=== PATIENT | female | born 1975 | race Caucasian/White ===

== ENCOUNTER 2022-10-15 10:18 | Outpatient (CLI) | payer MEDICAID, SELFPAY | END 2022-10-15 10:19 | disposition home or self-care (01) | PROVIDERS: PCP Family Medicine; Visit Provider Obstetrics & Gynecology | DX: N95.1 Menopausal and female climacteric states (principal) | CPT/HCPCS: 83001 ==

== ENCOUNTER 2022-12-16 12:08 | Emergency (ER) | payer MEDICAID, SELFPAY ==
[2022-12-16 12:21] VITALS: BP 108/74; PULSE 68; RESP 14; TEMP 36.4; O2SAT 98; BMI 35.2
--- NOTE | 2022-12-16 12:38 | ED_ITS ---
HPI - Female Genitourinary General Time Seen by Provider: 12:38 Date Seen: 12/16/22 Chief complaint: Urogenital Problems, Female Stated complaint: poss uti Time Seen by Provider: 12/16/22 12:28 Source: patient and RN notes reviewed Mode of arrival: ambulatory Limitations: no limitations History of Present Illness HPI Narrative: Patient is a 47-year-old female coming in with concern of urinary symptoms, wanting to rule out an underlying kidney stone. Patient's eye Rebecca Astorga yesterday in clinic at [facility], was diagnosed with UTI but was told that they could not rule out kidney stones. Jean Marie went in with urinary frequency incomplete emptying feeling terminal dysuria more in the pelvic area. No fevers chills. She baseline has underlying IBS and will vomit with that at times but has not noted any recently. There is no fever. She just feels a sense of fogginess, does not feel right. She was told she had a UTI yesterday but her kidney functions were normal. She was told by her boss at work, works at [employer], that she should be evaluated. She just not feeling well. She does have some low back pain with this. She was started on Levaquin. No recent intercourse. Patient states she was started on estradiol this past year by Dr. Castanon. She has never had a history of kidney stones herself, is not aware of family history of them. MD elicited complaint: dysuria and UTI Related Data Home Medications Medication Instructions Recorded Confirmed bupropion HCl 300 mg 24 hr tablet, mg PO 10/10/21 10/15/22 extended release lubiprostone 8 mcg capsule mcg PO 10/10/21 10/15/22 omeprazole 20 mg capsule,delayed mg 10/10/21 10/15/22 release ondansetron 4 mg disintegrating mg 10/10/21 10/15/22 tablet trazodone 50 mg tablet mg 10/10/21 10/15/22 Previous Rx's Medication Instructions Recorded estradiol 1 mg tablet 1 mg PO QDAY #90 tabs 10/15/22 Allergies Allergy/AdvReac Type Severity Reaction Status Date / Time penicillin V Allergy Severe Anaphylaxis Verified 12/16/22 12:32 Cephalosporins Allergy Mild Hives Verified 12/16/22 12:32 acetaminophen [From Vicodin] Allergy Vomiting Verified 12/16/22 12:32 amoxicillin [From Augmentin] Allergy Vomiting Verified 12/16/22 12:32 cefaclor [From Ceclor] Allergy hives Verified 12/16/22 12:32 clavulanic acid Allergy Vomiting Verified 12/16/22 12:32 [From Augmentin] hydrocodone [From Vicodin] Allergy Vomiting Verified 12/16/22 12:32 Penicillins Allergy Anaphylaxis Verified 12/16/22 12:32 Review of Systems Narrative: As per HPI. PFSH PFSH Medical History History of vaginal delivery History of blood transfusion ?Z92.89 - Personal history of other medical treatment (ICD-10) Adjustment disorder with depressed mood ?F43.21 - Adjustment disorder with depressed mood (ICD-10) Endometriosis ?N80.9 - Endometriosis, unspecified (ICD-10) History of cardiac murmur ?Z86.79 - Personal history of other diseases of the circulatory system (ICD- 10) Surgical History S/P thyroid biopsy (02/11/18) ?Z98.890 - Other specified postprocedural states (ICD-10) History of total hysterectomy (09/06/13) ?Z90.710 - Acquired absence of both cervix and uterus (ICD-10) History of ovarian cystectomy (05/13/10) ?Z98.890 - Other specified postprocedural states (ICD-10) ?Z87.42 - Personal history of other diseases of the female genital tract (ICD-10) History of endometrial ablation (07/17/06) ?Z98.890 - Other specified postprocedural states (ICD-10) History of laparoscopic cholecystectomy (2003) ?Z90.49 - Acquired absence of other specified parts of digestive tract (ICD- 10) History of appendectomy (1994) ?Z90.49 - Acquired absence of other specified parts of digestive tract (ICD- 10) Family History Mother Lung cancer Breast cancer, Onset Age: 55 Stroke Coronary artery disease High blood pressure Depression Sister Diabetes Father Coronary artery disease High cholesterol Myocardial infarction, Onset Age: 70 Peripheral vascular disease High blood pressure Maternal Grandmother Breast cancer, Onset Age: 74 Coronary artery disease Myocardial infarction, Onset Age: 83 Maternal Grandfather Coronary artery disease Myocardial infarction, Onset Age: 52 Uncle Coronary artery disease Myocardial infarction, Onset Age: 50 Brother Liver cirrhosis Social History What is your current living situation?: I presently have a place to live Problems where you live: no known problems In the past 12 months, utilities in danger of being shut off: no In the past 12 mos, have been you worried that your food would run out before you had money to buy more?: never true In the past 12 mos, the food you bought just didn't last and you didn't have money to buy more?: never true Smoking Status: Never smoker Do you use any of these nicotine containing products: None How often do you have a drink containing alcohol: monthly or less How many standard drinks containing alcohol do you have on a typical day: 1 or 2 How often do you have six or more drinks on one occasion: Less than monthly AUDIT-C Alcohol total score: 2 Non-prescribed substance use: denies use How often does anyone, including family, friends and others, physically hurt you : never How often does anyone, including family, friends and others, insult or talk down to you: rarely How often does anyone, including family, friends and others, threaten you with harm: never How often does anyone, including family, friends and others, scream or curse at you: rarely Exam Const: Vital Signs, click to edit/add: Vital Signs - 24 hr 12/16/22 12:21 12/16/22 14:57 Temperature 97.5 F L Pulse Rate [Right Pulse Oximeter] 68 70 Respiratory Rate 14 14 Blood Pressure [Ri ght Upper Arm] 108/74 121/78 Pulse Oximetry 98 98 Oxygen Delivery Me thod Room Air Room Air Jean Marie is a very pleasant 47-year-old female seen in exam room 4. She is alert, interactive, no apparent distress. Sclera clear come speech normal. Lungs are clear with good air entry, no wheezing crackles. No CVA tenderness. CV regular rate and rhythm no murmur. Abdomen is soft, no specific tenderness noted anywhere, certainly no rebound or guarding when I palpate. Documenting provider has reviewed patient's vital signs: yes Course Course ED Course: Jean Marie came to the ED anticipating CT imaging to rule out kidney stones. I am not is inclined to think that there is a kidney stone based on her symptoms but as she and I reviewed, it is imperative to make sure that there is no retained kidney stone if she indeed has a UTI. Thus, I have ordered a noncontrast CT, have asked her for repeat urinalysis here so that I may see it. Will also update her kidney function and make sure labs are looking reasonable. Reevaluation(s) Time of Reevaluation #1: 15:21 Reevaluation #1: Reviewed with patient her CT is not showing any evidence of urinary abnormality, no pyelonephritis, no kidney stones. It was done without contrast been on the LEs there is no urinary changes. There is some fluid around the small bowel that could be consistent with enteritis per the radiologist's report. Did review this with her. She does have a standing order of Zofran at home due to her irritable bowel syndrome. At this time would have her complete her Levaquin as prescribed yesterday. I am not finding anything new on urinalysis today. Labs are stable. We will discharge to home. Vital Signs Vital signs: Initial Vital Signs Temperature 97.5 F L 12/16/22 12:21 Temperature Source Temporal Artery Scan 12/16/22 12:21 Pulse Rate 68 12/16/22 12:21 Pulse Rhythm Regular 12/16/22 12:21 Respiratory Rate 14 12/16/22 12:21 Blood Pressure 108/74 12/16/22 12:21 Blood Pressure Mean 85 12/16/22 12:21 Blood Pressure Position Sitting 12/16/22 12:21 Pulse Oximetry 98 12/16/22 12:21 Oxygen Delivery Method Room Air 12/16/22 12:21 Vital Signs Temperature 97.5 F L 12/16/22 12:21 Pulse Rate 68 12/16/22 12:21 Respiratory Rate 14 12/16/22 12:21 Blood Pressure 108/74 12/16/22 12:21 Pulse Oximetry 98 12/16/22 12:21 Oxygen Delivery Method Room Air 12/16/22 12:21 Temperature 97.5 F L 12/16/22 12:21 Pulse Rate 70 12/16/22 14:57 Respiratory Rate 14 12/16/22 14:57 Blood Pressure 121/78 12/16/22 14:57 Pulse Oximetry 98 12/16/22 14:57 Oxygen Delivery Method Room Air 12/16/22 14:57 MDM - Female Genitourinary Lab Data Attestation: I reviewed the patient's lab results. Labs: Lab Results 12/16/22 12/16/22 Range/Units 12:38 13:07 WBC 8.48 (4.50-11.00) K/uL RBC 4.38 (4.00-5.20) m/uL Hgb 12.4 (12.0-16.0) gm/dL Hct 37.5 (33.0-51.0) % MCV 86 (80-100) fL MCH 28 (26-34) pg MCHC 33 (32-36) gm/dL RDW Coeff of Yariel 13.6 (11.5-15.5) % Plt Count 328 (140-440) K/uL Neut % (Auto) 70.9 (42.0-72.0) % Lymph % (Auto) 21.6 (20-44) % [place] % (Auto) 6.3 (0.0-11.0) % Eos % (Auto) 0.2 (0.0-7.0) % Baso % (Auto) 0.6 (0.0-3.0) % Neut # (Auto) 6.02 (1.7-7.0) K/uL Lymph # (Auto) 1.83 (0.90-2.90) K/uL [place] # (Auto) 0.50 (0.00-0.90) K/UL Eos # (Auto) 0.02 (0.00-0.50) K/uL Baso # (Auto) 0.05 (0.00-0.30) K/uL Abs Immat Gran (auto) 0.03 (0.00-0.30) K/uL Imm/Tot Granulo (auto) 0.4 % Sodium 136 (135-149) mmol/L Potassium 3.8 (3.6-5.1) mmol/L Chloride 103 (96-114) mmol/L Carbon Dioxide 25 (20-32) mmol/L Anion Gap 8 (7-15) mEq/L BUN 5 (5-24) mg/dL Creatinine 0.6 (0.5-1.5) mg/dL Estimated Creat Clear 111.51 Estimated GFR 111 ml/min Glucose 90 (60-115) mg/dL Lactate 0.6 (0.5-1.9) mmol/L Calcium 9.4 (8.4-10.6) mg/dL C-Reactive Protein 0.7 (0.5-1.0) mg/dL Urine Color Yellow (Yellow) Urine Appearance Clear (Clear) Urine pH 6.5 (5.0-8.5) Ur Specific [place] 1.015 (1.000-1.030) Urine Protein Negative (Negative) Urine Glucose (UA) Negative (Negative) Urine Ketones Negative (Negative) Urine Blood Negative (Negative) Urine Nitrite Negative (Negative) Urine Bilirubin Negative (Negative) Urine Urobilinogen 0.2 (0.2-1.0) Ur Leukocyte Esterase Trace A (Negative) Urine RBC 0-2 (0-2) Urine WBC 0-2 (0-5) Ur Squamous Epith Cells Few (None-Few) Urine Bacteria Few A (None) Imaging Data CT scan - abdomen: Attestation: I have reviewed the pertinent imaging results. Radiologist's impression: Patient: JEAN MARIE CLARK Facility:?[facility] Patient ID:?[id number] Site Patient ID:?[id number]. Site :?[id number] Study:?CT Abdomen/Pelvis W/O-12/16/2022 1:19:40 PM Ordering Physician:Rina Law Final Report: Indication: History of urinary symptoms, rule out kidney stone Technique: Volumetric multidetector CT images of the abdomen and pelvis were without the administration of intravenous contrast. Comparison: None available. Findings: The lung bases are clear. Ex fix The liver is normal in attenuation without intrahepatic biliary ductal dilatation. C there is prior cholecystectomy. There is no significant common biliary ductal dilatation or abrupt cut off. The spleen is normal in attenuation and size. The stomach and duodenum are grossly unremarkable. The pancreas is normal in attenuation without significant atrophy. The adrenal glands are unremarkable. There is no evidence of radiopaque calculus or hydronephrosis. There is moderate stool seen throughout the colon with fluid-filled central small-bowel which may represent mild enteritis change. The appendix is unremarkable. There is no significant mesenteric, retroperitoneal, or pelvic sidewall lymph nodes. The aorta is nonaneurysmal. There is no significant atherosclerotic disease appreciated. There is prior hysterectomy. There is no intra-abdominal free air or free fluid. Otherwise, the pelvic viscera are grossly within normal limits. The anterior abdominal wall is grossly intact. The lumbar vertebral body heights are maintained with mild multi-level degenerative disc disease. Impression: No evidence of hydronephrosis or obstructive radiopaque calculus. Minimal fluid is seen within the central small bowel consistent with mild enteritis change. Otherwise, no definite acute intra-abdominal abnormality is identified. Please note that all CT scans at this facility use dose modulation, iterative reconstruction, and/or weight-based dosing when appropriate to reduce radiation dose to as low as reasonably achievable. Dictated by Randy Pepper MD @ 12/16/2022 2:03:15 PM (Electronic Signature) Critical Care Time Critical Care Time Critical Care Time: No Discharge Plan Discharge Clinical Impression: Urinary tract infection, Enteritis Patient Disposition: Home, Self-Care Condition: Stable Instructions: Urinary Tract Infection in Women (ED), Enteritis (ED) Additional Instructions: Complete the antibiotics for the diagnosis of the urinary tract infection from your clinic visit yesterday. With enteritis, this is typically viral and require supportive care. Recommend small frequent sips of fluids to stay hydrated. May need to use Zofran for nausea vomiting. It is possible that you may develop diarrhea with this as well. Seek re-evaluation if you are unable to keep orals in, have worsening symptoms or further concerns. Otherwise, may try diet as tolerated. Activity Level: Activity as Tolerated Prescriptions: No Action estradiol 1 mg tablet 1 mg PO QDAY Qty: 90 0RF trazodone 50 mg tablet Patient Comments: TAKE TWO TABLETS BY MOUTH DAILY AT BEDTIME omeprazole 20 mg capsule,delayed release(DR/EC) Patient Comments: TAKE ONE CAPSULE BY MOUTH ONE TIME DAILY before a meal ondansetron 4 mg tablet,disintegrating Patient Comments: DISSOLVE ONE TABLET IN MOUTH EVERY EIGHT HOURS NEEDED FOR NAUSEA AND VOMITING bupropion HCl 300 mg tablet extended release 24 hr PO Patient Comments: TAKE ONE TABLET BY MOUTH ONE TIME DAILY lubiprostone 8 mcg capsule PO Hold Instructions: PRN Patient Comments: take 1 capsule by mouth 2 times daily for 2 weeks. if constipation not well managed, increase to 2 capsules 2 times daily. Follow Up/Referrals: Lion Anderson MD [Primary Care Provider] - Stand Alone Forms: [employer] Info Instructions
--- NOTE | 2022-12-16 12:44 | CRLHL7_ITS ---
For Patients: As a result of the Century Cures Act, medical imaging exams and procedure reports are released immediately into your electronic medical record. You may view this report before your referring provider. If you have questions, please contact your health care provider. Indication: History of urinary symptoms, rule out kidney stone Technique: Volumetric multidetector CT images of the abdomen and pelvis were without the administration of intravenous contrast. Comparison: None available. Findings: The lung bases are clear. Ex fix The liver is normal in attenuation without intrahepatic biliary ductal dilatation. C there is prior cholecystectomy. There is no significant common biliary ductal dilatation or abrupt cut off. The spleen is normal in attenuation and size. The stomach and duodenum are grossly unremarkable. The pancreas is normal in attenuation without significant atrophy. The adrenal glands are unremarkable. There is no evidence of radiopaque calculus or hydronephrosis. There is moderate stool seen throughout the colon with fluid-filled central small-bowel which may represent mild enteritis change. The appendix is unremarkable. There is no significant mesenteric, retroperitoneal, or pelvic sidewall lymph nodes. The aorta is nonaneurysmal. There is no significant atherosclerotic disease appreciated. There is prior hysterectomy. There is no intra-abdominal free air or free fluid. Otherwise, the pelvic viscera are grossly within normal limits. The anterior abdominal wall is grossly intact. The lumbar vertebral body heights are maintained with mild multi-level degenerative disc disease. Impression: No evidence of hydronephrosis or obstructive radiopaque calculus. Minimal fluid is seen within the central small bowel consistent with mild enteritis change. Otherwise, no definite acute intra-abdominal abnormality is identified. Please note that all CT scans at this facility use dose modulation, iterative reconstruction, and/or weight-based dosing when appropriate to reduce radiation dose to as low as reasonably achievable. Dictated by Randy Pepper MD @ 12/16/2022 2:03:15 PM (Electronically Signed)
[2022-12-16 12:55] LABS: Appearance Urine Clear (Clear); Bilirubin Urine Negative (Negative); Blood Urine Negative (Negative); Color Urine Yellow (Yellow); Glucose Urine Negative (Negative); Ketones Urine Negative (Negative); Leukocyte Esterase Urine Trace (Negative); Nitrite Urine Negative (Negative); Protein Urine Negative (Negative); Specific Gravity Urine 1.015 (1.000-1.030); Urobilinogen Urine 0.2 (0.2-1.0); pH Urine 6.5 (5.0-8.5)
[2022-12-16 13:11] LABS: Bacteria Urine Few; RBC Urine 0-2 (0-2); Squamous Epithelial Cell Urine Few (None-Few); WBC Urine 0-2 (0-5)
[2022-12-16 13:12] LABS: Lactate* 0.6 mmol/L (0.5-1.9)
[2022-12-16 13:20] LABS: Basophils Absolute Auto 0.05 K/uL (0.00-0.30); Basophils Percent Auto 0.6 % (0.0-3.0); Eosinophils Absolute Auto 0.02 K/uL (0.00-0.50); Eosinophils Percent Auto 0.2 % (0.0-7.0); Hematocrit 37.5 % (33.0-51.0); Hemoglobin* 12.4 gm/dL (12.0-16.0); Immature Granulocytes Abs Auto 0.03 K/uL (0.00-0.30); Immature Granulocytes Pct Auto 0.4 %; Lymphocytes Absolute Auto 1.83 K/uL (0.90-2.90); Lymphocytes Percent Auto 21.6 % (20-44); Mean Corpuscular HGB Conc 33 gm/dL (32-36); Mean Corpuscular Hemoglobin 28 pg (26-34); Mean Corpuscular Volume 86 fL (80-100); Monocytes Percent Auto 6.3 % (0.0-11.0); Neutrophils Absolute Auto 6.02 K/uL (1.7-7.0); Neutrophils Percent Auto 70.9 % (42.0-72.0); Platelet Count* 328 K/uL (140-440); RDW Coefficient of Variation % 13.6 % (11.5-15.5); Red Blood Count 4.38 m/uL (4.00-5.20); White Blood Count* 8.48 K/uL (4.50-11.00)
[2022-12-16 13:25] LABS: Slide Review Reflex No
[2022-12-16 13:36] LABS: Chloride* 103 mmol/L (96-114); Potassium* 3.8 mmol/L (3.6-5.1); Sodium* 136 mmol/L (135-149)
[2022-12-16 13:39] LABS: Anion Gap 8 mEq/L (7-15); Carbon Dioxide* 25 mmol/L (20-32); Creatinine* 0.6 mg/dL (0.5-1.5); Est. Creatinine Clearance* 111.51; Estimated Glomerular Filt Rate 111 ml/min
[2022-12-16 13:40] LABS: Blood Urea Nitrogen* 5 mg/dL (5-24); Calcium* 9.4 mg/dL (8.4-10.6); Glucose* 90 mg/dL (60-115)
[2022-12-16 13:42] LABS: C Reactive Protein* 0.7 mg/dL (0.5-1.0)
[2022-12-16 14:57] VITALS: BP 121/78; PULSE 70; RESP 14; O2SAT 98
== END 2022-12-16 15:32 | disposition home or self-care (01) ==
PROVIDERS: Emergency Provider Family Medicine; PCP Family Medicine
DX: N39.0 Urinary tract infection, site not specified (principal); K52.9 Noninfective gastroenteritis and colitis, unspecified
CPT/HCPCS: 36415; 74176; 80048; 81001; 83605; 85025; 86140; 87086; 99284

== ENCOUNTER 2023-12-15 16:36 | Outpatient (CLI) | payer OTHER, SELFPAY ==
--- NOTE | 2023-12-15 19:20 | CRLHL7_ITS ---
For Patients: As a result of the Century Cures Act, medical imaging exams and procedure reports are released immediately into your electronic medical record. You may view this report before your referring provider. If you have questions, please contact your health care provider. BILATERAL SCREENING MAMMOGRAM WITH COMPUTER-AIDED DETECTION AND TOMOSYNTHESIS TECHNIQUE: CC and MLO views were obtained. These mammographic images have been obtained using full-field digital technique. These mammographic images were interpreted with the benefit of computer-aided detection. Breast Tomosynthesis was used in this interpretation. COMPARISON FILM: 06/10/21, 06/14/20. FINDINGS: The breasts are heterogeneously dense, which may obscure small masses. IMPRESSION: There is no radiographic evidence for malignancy. ASSESSMENT: BI-RADS Category 1: Negative RECOMMENDATION: Routine screening mammogram in 1 year. A lay language report of this examination will be provided to the patient. Adan King M.D. Diagnostic Radiologist [email or web address] SP/Dictated by: Adan King MD @ 12/17/2023 12:56:00 PM (Electronically Signed)
== END 2023-12-15 16:37 | disposition home or self-care (01) ==
LOC: MAMMO 16:36
PROVIDERS: PCP Family Medicine; Visit Provider Family Medicine
DX: Z12.31 Encounter for screening mammogram for malignant neoplasm of breast (principal); R92.2 Inconclusive mammogram
CPT/HCPCS: 77063; 77067

== ENCOUNTER 2024-04-01 05:23 | Emergency (ER) | payer OTHER, SELFPAY ==
[2024-04-01 05:27] VITALS: BP 166/80; PULSE 100; RESP 16; TEMP 36.9; O2SAT 100; BMI 28.2
--- NOTE | 2024-04-01 06:11 | ED.GENADULT ---
HPI - General Adult General Date Seen: 04/01/24 Chief complaint: Nausea/Vomiting Stated complaint: facial swelling/vomiting Time Seen by Provider: 04/01/24 05:26 Source: patient Mode of arrival: ambulatory Limitations: no limitations History of Present Illness HPI narrative: Patient is a 48-year-old female who was seen two days ago for acute maxillary sinusitis and started on sulfa. She lists allergic reactions to penicillins, cephalosporins. Her sinus pain has gotten worse and Tylenol and ibuprofen are not helping. This morning she noticed increased swelling to the right side of her face. No lip or tongue swelling. No wheezing or shortness of breath. No fevers or chills. Related Data Home Medications ?Medication ?Instructions ?Recorded ?Confirmed bupropion HCl 300 mg 24 hr tablet, mg PO 10/10/21 11/23/23 extended release lubiprostone 8 mcg capsule mcg PO 10/10/21 11/23/23 omeprazole 20 mg capsule,delayed mg 10/10/21 11/23/23 release ondansetron 4 mg disintegrating mg 10/10/21 11/23/23 tablet trazodone 50 mg tablet mg 10/10/21 11/23/23 Previous Rx's ?Medication ?Instructions ?Recorded estradiol 1 mg tablet 1 mg PO QDAY #90 tabs 11/23/23 azithromycin 250 mg tablet See Rx Instructions PO .COMPLEX #6 04/01/24 (Zithromax Z-Troy) tabs prednisone 50 mg tablet 50 mg PO DAILY #5 tabs 04/01/24 tramadol 50 mg tablet 50 mg PO TID PRN pain #15 tabs 04/01/24 Allergies Allergy/AdvReac Type Severity Reaction Status Date / Time penicillin V Allergy Severe Anaphylaxis Verified 04/01/24 05:32 Cephalosporins Allergy Mild Hives Verified 04/01/24 05:32 acetaminophen (From Vicodin) Allergy Vomiting Verified 04/01/24 05:32 amoxicillin (From Augmentin) Allergy Vomiting Verified 04/01/24 05:32 cefaclor (From Ceclor) Allergy hives Verified 04/01/24 05:32 clavulanic acid (From Allergy Vomiting Verified 04/01/24 05:32 Augmentin) hydrocodone (From Vicodin) Allergy Vomiting Verified 04/01/24 05:32 Penicillins Allergy Anaphylaxis Verified 04/01/24 05:32 Review of Systems Narrative: Review of systems is outlined above otherwise noted to be negative. [facility] Medical History History of vaginal delivery History of blood transfusion ?Z92.89 - Personal history of other medical treatment (ICD-10) Adjustment disorder with depressed mood ?F43.21 - Adjustment disorder with depressed mood (ICD-10) Endometriosis ?N80.9 - Endometriosis, unspecified (ICD-10) History of cardiac murmur ?Z86.79 - Personal history of other diseases of the circulatory system (ICD-10) Surgical History S/P thyroid biopsy (02/11/18) ?Z98.890 - Other specified postprocedural states (ICD-10) History of total hysterectomy (09/06/13) ?Z90.710 - Acquired absence of both cervix and uterus (ICD-10) History of ovarian cystectomy (05/13/10) ?Z98.890 - Other specified postprocedural states (ICD-10) ?Z87.42 - Personal history of other diseases of the female genital tract (ICD-10) History of endometrial ablation (07/17/06) ?Z98.890 - Other specified postprocedural states (ICD-10) History of laparoscopic cholecystectomy (2003) ?Z90.49 - Acquired absence of other specified parts of digestive tract (ICD-10) History of appendectomy (1994) ?Z90.49 - Acquired absence of other specified parts of digestive tract (ICD-10) Family History Mother Lung cancer Breast cancer, Onset Age: 55 Stroke Coronary artery disease High blood pressure Depression Sister Diabetes Father Coronary artery disease High cholesterol Myocardial infarction, Onset Age: 70 Peripheral vascular disease High blood pressure Maternal Grandmother Breast cancer, Onset Age: 74 Coronary artery disease Myocardial infarction, Onset Age: 83 Maternal Grandfather Coronary artery disease Myocardial infarction, Onset Age: 52 Uncle Coronary artery disease Myocardial infarction, Onset Age: 50 Brother Liver cirrhosis Social History What is your current living situation?: I presently have a place to live Problems where you live: no known problems In the past 12 months, utilities in danger of being shut off: no In past 12 months, lack of transportation kept you from medical appts, meetings, work, or getting things needed for daily living: no In the past 12 mos, have been you worried that your food would run out before you had money to buy more?: never true In the past 12 mos, the food you bought just didn't last and you didn't have money to buy more?: never true Smoking Status: Never smoker Do you use any of these nicotine containing products: None How often do you have a drink containing alcohol: monthly or less How many standard drinks containing alcohol do you have on a typical day: 1 or 2 How often do you have six or more drinks on one occasion: Less than monthly AUDIT-C Alcohol total score: 2 Non-prescribed substance use: denies use How often does anyone, including family, friends and others, physically hurt you: never How often does anyone, including family, friends and others, insult or talk down to you: rarely How often does anyone, including family, friends and others, threaten you with harm: never How often does anyone, including family, friends and others, scream or curse at you: rarely Health Related Social Needs: Other personal risk factors, not elsewhere classified (Z91.89) Exam Narrative: Exam Narrative: Vitals noted. HEENT: Conjunctiva clear. Tympanic membranes are pearly white bilaterally. Posterior pharynx is clear without erythema or exudate. Neck is supple without adenopathy. Lungs: Clear to auscultation in all ramírez. No wheezes, rales, rhonchi. Heart: Regular rate and rhythm without murmur. Extremities: No cyanosis or edema. Good distal pulses. Skin: She has soft tissue swelling of her right cheek and chin. No lip or tongue swelling. Neurologic: Awake, alert, fully oriented. Neurologic exam is nonfocal. Const: Vital Signs, click to edit/add: Vital Signs - 24 hr 04/01/ 05:27 Temperature 98.5 F Pulse Rate [Right Pulse Oximeter] 100 Respiratory Rate 16 Blood Pressure [Ri ght Upper Arm] 166/80 H Pulse Oximetry 100 Oxygen Delivery Me thod Room Air Course Course ED Course: Patient seen and examined. It appears that she is having allergic reaction to the sulfa antibiotic. She has some nausea but no vomiting. She is requesting something stronger than ibuprofen for pain. Vital Signs Vital signs: Initial Vital Signs Temperature 98.5 F 04/01/24 05:27 Temperature Source Temporal Artery Scan 04/01/24 05:27 Pulse Rate 100 04/01/24 05:27 Pulse Rhythm Regular 04/01/24 05:27 Pulse Strength 3+ Normal 04/01/24 05:27 Respiratory Rate 16 04/01/24 05:27 Blood Pressure 166/80 H 04/01/24 05:27 Blood Pressure Mean 108 H 04/01/24 05:27 Blood Pressure Position Supine 04/01/24 05:27 Pulse Oximetry 100 04/01/24 05:27 Oxygen Delivery Method Room Air 04/01/24 05:27 Vital Signs Temperature 98.5 F 04/01/24 05:27 Pulse Rate 100 04/01/24 05:27 Respiratory Rate 16 04/01/24 05:27 Blood Pressure 166/80 H 04/01/24 05:27 Pulse Oximetry 100 04/01/24 05:27 Oxygen Delivery Method Room Air 04/01/24 05:27 Temperature 98.5 F 04/01/24 05:27 Pulse Rate 100 04/01/24 05:27 Respiratory Rate 16 04/01/24 05:27 Blood Pressure 166/80 H 04/01/24 05:27 Pulse Oximetry 100 04/01/24 05:27 Oxygen Delivery Method Room Air 04/01/24 05:27 Discharge Plan Discharge Clinical Impression: Acute sinusitis, Allergic reaction due to antibacterial drug Patient Disposition: Home, Self-Care Condition: Stable Additional Instructions: Stop Sulfa. Start a Z-Troy. Prednisone 50 mg daily for five days. Benadryl 25 mg every 6 hours as needed. Tylenol and ibuprofen for pain. Tramadol for refractory pain. Follow-up with Dr. Anderson. Prescriptions: New azithromycin [Zithromax Z-Troy] 250 mg tablet See Rx Instructions .ROUTE .COMPLEX Qty: 6 0RF Rx Instructions: For 250 mg dose pack: take 500 mg today (day 1), then 250 mg for 4 days (days 2-5) prednisone 50 mg tablet 50 mg PO DAILY Qty: 5 0RF tramadol 50 mg tablet 50 mg PO TID PRN (Reason: pain) Qty: 15 0RF No Action estradiol 1 mg tablet 1 mg PO QDAY Qty: 90 3RF trazodone 50 mg tablet Patient Comments: TAKE TWO TABLETS BY MOUTH DAILY AT BEDTIME omeprazole 20 mg capsule,delayed release(DR/EC) Patient Comments: TAKE ONE CAPSULE BY MOUTH ONE TIME DAILY before a meal ondansetron 4 mg tablet,disintegrating Patient Comments: DISSOLVE ONE TABLET IN MOUTH EVERY EIGHT HOURS NEEDED FOR NAUSEA AND VOMITING bupropion HCl 300 mg tablet extended release 24 hr PO Patient Comments: TAKE ONE TABLET BY MOUTH ONE TIME DAILY lubiprostone 8 mcg capsule PO Patient Comments: take 1 capsule by mouth 2 times daily for 2 weeks. if constipation not well managed, increase to 2 capsules 2 times daily. Follow Up/Referrals: Lion Anderson MD [Primary Care Provider] - Stand Alone Forms: Producteev Info Instructions
== END 2024-04-01 06:23 | disposition home or self-care (01) ==
LOC: ED 06:20
PROVIDERS: Emergency Provider Family Medicine; PCP Family Medicine
DX: J01.90 Acute sinusitis, unspecified (principal); T36.95XA Adverse effect of unspecified systemic antibiotic, initial encounter
CPT/HCPCS: 99281; 99283

== ENCOUNTER 2024-11-02 14:11 | Outpatient (CLI) | payer OTHER, SELFPAY | END 2024-11-02 14:12 | disposition home or self-care (01) | PROVIDERS: PCP Family Medicine; Visit Provider Obstetrics & Gynecology | DX: R30.0 Dysuria (principal) | CPT/HCPCS: 87086 ==

== ENCOUNTER 2025-02-19 06:56 | Emergency (ER) | payer OTHER, SELFPAY ==
--- OUTSIDE RECORDS SUMMARY | 2025-02-19 06:58 | XMS_ITS | Clinical Summary ---
Author Organization [facility] Address [address] [place] [id number] Care Team Providers Care Patient Care Technician Name Role Phone Lion Anderson MD Primary Care Provider [phone] Saad Ruffin MD Unavailable [phone] Allergies Active Allergy Reactions Criticality Noted Date Comments Amoxicillin-Pot Clavulanate Intolerance-Can't Take Cefaclor Rash Penicillins Anaphylaxis High Sulfamethoxazole-Trimethoprim Edema,Vomiting High Hydrocodone-Acetaminophen Nausea And Vomiting 1 05/11/2006 Medications multivitamin (MVI) tablet Take 1 Tablet by mouth once daily. 0 3 Active glucosam/chond-msm1 /C/fausto/bor (GLUCOSAMINE-CHOND- MSM COMPLEX ORAL) Take by mouth. Active estradioL (ESTRACE) 1 mg tablet Take 1 mg by mouth once daily. 3 Active cholecalciferol (VITAMIN D3) 2,000 unit capsule Take 2,000 units by mouth once daily. Active ondansetron (Zofran ODT) 4 mg disintegrating tabletIndications:N ausea Place 1 Tablet (4 mg) on the tongue every 8 hours if needed for Nausea/Vomit ing. 25 Tablet 3 5 Active omeprazole (PRILOSEC) 20 mg Delayed-Release capsuleIndications: Gastroesophageal reflux disease, unspecified whether esophagitis present Take 1 Capsule (20 mg) by mouth once daily before a meal. 90 Capsule 3 5 Active hyoscyamine sublingual (LEVSIN SL) 0.125 mg sublIndications:Irr itable bowel syndrome without diarrhea DISSOLVE ONE TABLET UNDER TONGUE EVERY FOUR HOURS NEEDED FOR PAIN 50 Tablet 3 5 Active buPROPion (WELLBUTRIN XL) 300 mg Extended-Release tabletIndications:A nxiety state Take 1 Tablet (300 mg) by mouth once daily. 90 Tablet 3 5 Active propranoloL (INDERAL) 10 mg tabletIndications:S ituational anxiety 10-20 mg twice daily as needed for Anxiety. 30 Tablet 2 5 Active hydrOXYzine HCL (ATARAX) 25 mg tabletIndications:S ituational anxiety Take 1-2 Tablets (25-50 mg) by mouth every 8 hours if needed for Anxiety. Don't drive for 8 hours after taking this. 30 Tablet 2 5 Active lubiprostone (AMITIZA) 24 mcg capsuleIndications: Other irritable bowel syndrome Take 1 Capsule (24 mcg) by mouth two times daily. 180 Capsule 3 5 Active Active Problems Problem Noted Date Diagnosed Date Prediabetes 08/22/2022 Overview (08/22/2022): Diagnosed based on a fasting glucose of 102 on 07/01/2022 COVID-19 virus infection 08/06/2022 Morbid obesity with BMI of 40.0-44.9, adult 09/2021 Anxiety 09/27/2018 S/P hysterectomy 07/11/2016 Vitamin B12 deficiency anemia 07/11/2016 Iron deficiency anemia secon gideon to inadequate dietary iron intake 07/11/2016 Family history of diabetes mellitus type II 10/2016 Irritable bowel syndrome 08/14/2014 Overview (07/02/2015): EGD 04/2015 normal biopsy on a regular diet. Patient does not have celiac disease per biopsy. Colonoscopy 06/2015 normal repeat in 10 years GERD (gastroesophageal reflux disease) 3 Nausea alone 07/27/2012 Overview (07/27/2012): EGD 07/2012 possible celiac disease, antibodies ordered Adjustment disorder with depressed mood 01/14/20 11 Ovarian cyst 08/09/2008 Overview (09/27/2018): Ovarian cyst not present on [address] scan. Resolved Problems Problem Noted Date Diagnosed Date Resolved Date Celiac disease 08/27/2012 04/17/2015 Overview (04/17/2015): Her biopsy suggested this. Her blood work when she went off gluten was negative. (this is often the case). We decided not to retest her because she felt so much better off wheat. EGD 04/2015 normal biopsy on a regular diet. Patient does not have celiac disease per biopsy. Encounters Date Type Department Care Team Description 11/24/2024 Telephone [facility] [address] [place], [place] [id number] Lion Anderson MD Form from Last 3 Months Immunizations Immunization Administration Dates Next Due COVID-19 VACCINE (PFIZER-BIO NTECH 3MCG/0.3ML) 6MO-4YO PF, MDV 12/30/2022 COVID-19 VACCINE COMIRNATY (PFIZER-BIONTECH 30MCG/0.3ML) 12YO+ PFS 01/07/2024,12/29/2022 COVID-19 vaccine (Pfizer-Bio NTech 30mcg/0.3mL) PF, MDV 04/17/2021,06/09/2020,05/19/2020 Hep B (Hepatitis B (Adult) Recombinant Adjuvanted) 06/13/2021 Influenza, IIV3 (Age 6-35 mos) 01/13/2011 Influenza, IIV3 (Age >=3 years) 01/07/20 24,02/20/2012,01/13/2011,2009,02/23/2004 Influenza, IIV4 12/30/2022,01/08/2018 Td (Age >=7 Years) 02/12/1995 Tdap 02/19/2021,01/07/2010 Family History Medical History Relation Name Comments Heart Disease Father MD @ 70 Hyperlipidemia Father Other Father peripheral vasc ular disease Cancer-breast Maternal Aunt Heart Disease Maternal Grandfather o f Heart attack @ Cancer-breast Maternal Grandmother 74 Heart Disease Maternal Grandmother 3 hear t attacks @ 83 Other Maternal Grandmother unusual anemia and diabetes Cancer Mother lung Cancer-breast Mother age 55 Cancer-breast Other Maternal Great Grandmother Diabetes Sister Cancer-ovarian No Family History Relation Name Status Comments Father Maternal Aunt Maternal Grandfather Maternal Grandmother Mother (Age 60) Other Sister Social History Tobacco Use Types Packs/Day Years Used Date Smoking Tobacco: Former Cigarettes Q uit: 04/06/2004 Passive Smoke Exposure: Never Smokeless Tobacco: Never Tobacco Cessation:Counseling Given: Not Answered Alcohol Use Standard Drinks/Week Comments Not Currently 0 (1 standard drink = 0.6 oz pur e alcohol) rarely PHQ-2 Answer Date Recorded PHQ-2 TOTAL SCORE 0 02/10/2024 Social Connections Answer Date Recorded Do you often feel lonely or isolated from those around you? 0 07/16/2023 Alcohol Use Answer Date Recorded How often do you have a drink containing alcohol ? 1 08/22/2022 How many drinks containing a lcohol do you have on a typical day when you are drinking? 0 08/22/2022 How often do you have five or more drinks on one occasion? 0 08/22/2022 Financial Resource Strain Answer Date R ecorded Difficulty of Paying Living Expenses 3 07/16/2023 Difficulty of Paying Living Expenses Not on file 07/16/2023 Food Insecurity Answer Date Recorded Do you worry your food will run out before you are able to buy more? 1 07/16/2023 Transportation Needs Answer Date Record ed Does lack of transportation keep you from medica l appointments? 1 07/16/2023 Does lack of transportation keep you from work, meetings or getting things that you need? 1 07/16/2023 Housing Stability Answer Date Recorded What is your housing situation today? 1 07/16/2023 Utilities Answer Date Recorded Do you have trouble paying f or utilities (for example, heat, electricity, water, phone)? 1 07/16/2023 Comments No Sex and Gender Information Value Date Recorded Sex Assigned at Not on file Legal Sex Female 6:47 AM [employer] Gender Identity Not on file Sexual Orientation Not on file Occupation Industry Job Start Date Job End Date [employer] Not on file Not on file Not on f ile Obstetrics History Last Filed Vital Signs Vital Sign Reading Time Taken Comments Blood Pressure 123/81 06/01/2024 10:30 AM [employer] Pulse 74 06/01/2024 10:30 AM [employer] Temperature 36.3 C (97.4 F) 06/01/2024 10:30 AM [employer] Respiratory Rate 18 10/08/2021 1:26 PM CDT Oxygen Saturation 96% 06/01/2024 10:30 AM [employer] Inhaled Oxygen Concentration - - Weight 97.2 kg (214 lb 4.8 oz) 06/01/2024 10:30 AM [employer] Height 167 cm (5' 5.75) 06/01/2024 10:30 AM [employer] Body Mass Index 34.85 06/01/2024 10:30 AM [employer]AD [employer]EL[employer] Plan of Treatment Health Maintenance Due Date Last Done Comments Hepatitis B series for 19+ ( 2 of 2 - CpG 2-dose series) 07/11/2021 06/13/2021 Pneumococcal series for age 50+ (1 of 1 - PCV) 2024 Zoster (shingles) series for age 50+ (1 of 2) 2024 Influenza Vaccine (#1) 2024 , 12/30/2022, 01/08/2018, Additional history exists Mammogram for age 45-75 12/14/2024 12/15/19, 06/25/2022, 06/10/2021, Additional history exists Depression screening for age 12+ 02/10/2025 02/11/2024, 02/10/2024, 12/24/2022, Additional history exists BMI (ht and wt on same day) for age 18+ 06/01/2025 06/01/2024, 03/31/2024, 10/16/2023, Additional history exists Colonoscopy through age 75 06/27/2025 06/28/2015 Lipids for age 45-75 07/02/2027 07/01/2022, 06/20/2020, 07/11/2016, Additional history exists Tetanus booster 02/19/2031 02/19/2021, 07/2009, 02/12/1995 RSV vaccine for adults or (1 - 1-dose 75+ series) 2049 Pap test for age 21-65 Discontinued 1, 01/07/2010, 06/08/2006, Additional history exists Hepatitis C screening for ag e 18-79 Completed 07/21/2012 HIV for age 15-65 Completed 10/14/2023 Procedures Procedure Name Priority Date/Time Associated Diagnosis Comments XR MAMMO SHERRY BILAT SCREEN Routine 12/15/2023 12:00 AM CDT Breast cancer screening by mammogram ANTI HIV 1/2 Add On 10/14/2023 7:35 AM CDT Screening for HIV (human immunodeficiency virus) LC LIPID PANEL AND CHOL/HDL RATIO Routine 07/01/2022 7:26 AM CDT Lipid screening ANTI HCV Routine 07/21/2012 3:30 PM CDT Abdominal pain, epigastric COB SAWYER THIN PREP PAP SCREEN IMAGED Routine 01/13/2011 2:06 PM CDT Screening for malignant neoplasm of the cervix from Last 3 Months or Most Recently Relevant to Health Maintenance Results * XR MAMMO SHERRY BILAT SCREEN [[id number]] (12/15/2023 12:00 AM CDT) Anatomical Region Laterality Modality BREASTS, Breast Left, Breast Right Bilateral Mammography Lion Anderson MD MAMMO Final Resu lt * ANTI HIV 1/2 [[id number]] (10/14/2023 7:35 AM CDT) Pathologist [facility] HIV-1/HIV-2 SCREEN Non-Reacti ve Non-Reacti ve 10/16/2023 3:52 PM [address] [facility] Comment:HIV-1 p24 and HIV-1/ HIV-2 Ab Not Detected. Blood BLOOD SPECIMEN / Unknown Venipuncture / Unknown 10/14/2023 7:35 AM CDT 10/14/2023 7:36 AM CDT Lion Anderson MD SEND OUTS Final Resu lt [facility] [address] [place] [address], [place] * (ABNORMAL) LC LIPID PANEL AND CHOL/HDL RATIO (07/01/2022 7:26 AM CDT) [facility] Cholesterol, Total 190 100 - 199 mg/dL 07/03/2022 9:[address] [facility] Triglycerides 84 0 - 149 mg/dL 07/03/2022 9:[address] [facility] HDL Cholesterol 58 >39 mg/dL 9:10 AM T [facility] ([facility] VLDL Cholesterol Fidel 15 5 - 40 mg/dL 07/03/2022 9:10 AM T [facility] LDL Chol Calc ([facility]) 117(H) 0 - 99 mg/dL 07/03/2022 9:[address] [facility] T. Chol/HDL Ratio 3.3 0.0 - 4.4 ratio 07/03/2022 9:10 AM T [facility] Comment: T. Chol/HDL Ratio Men Women 1/2 Avg.Risk 3.4 3.3 Avg.Risk 5.0 4.4 2X Avg.Risk 9.6 7.1 3X Avg.Risk 23.4 11.0 Blood BLOOD SPECIMEN / Unknown Venipuncture / Unknown 07/01/2022 7:26 AM CDT 07/01/2022 7:26 AM CDT Narrative [facility] - 07/03/2022 9:10 AM CDT Performed at: [address] [place] [id number] Manufacturing Area Manager: Shad Mcclure MD, Phone: [phone] us Lion Anderson MD SEND OUTS Final Resu lt [facility] ([facility]) [address] [place] [id number], * ANTI HCV (07/21/2012 3:30 PM CDT) [facility] ANTI HCV Non-reacti ve [facility] Blood specimen (specimen) BLOOD SPECIMEN / Unknown 07/21/2012 3:30 PM CDT 07/21/2012 3:22 PM CDT us Lion Anderson MD SEND OUTS Final Resu lt [facility] INTERNAL ZIP [id number] [address] [place] [address] * COB SAWYER THIN PREP PAP SCREEN IMAGED (01/13/2011 2:06 PM CDT) CYTOLOGY CYTOPATHOLOGY REPORT [facility] Status: Final Status [id number] CLINICAL INFORMATION Last Date of LMP :12/24/2010 Last Pap Date :01/07/2010 Last Pap Result :NIL ABN [place]/Bx Past 5 YRS :None Hormone Usage :None Menstrual Status :Regular Periods [place]/Bx done today :No Additional Information :None given HPV Request :HPV if ASCUS SPECIMEN SOURCE :Cervical/vaginal ThinPrep Vial, screening SPECIMEN ADEQUACY :Satisfactory for evaluation Endocervical component present. INTERPRETATION/RES ULT Negative for intraepithelial lesion or malignancy (NIL) Cytology 1st Screener :tami Signed by :tami This specimen was screened by the FDA approved ThinPrep Imaging System and manually reviewed. NOTE: The Pap test is a screening technique, not a diagnostic procedure. It is used primarily to screen for squamous cancers and precursor lesions. Published studies have shown that it is subject to both false negative and false positive results. The pap test should not be used as the sole means to diagnose or exclude pre-malignant and malignant lesions. COLLECTED:01/13/11 ACCESSIONED: 01/14/11 SIGNED: 01/20/11 [facility] PAP [place] CODE NIL [facility] Cervical/Vaginal (Cervical/Vagina l) 01/13/2011 2:06 PM CDT 01/13/2011 2:05 PM CDT us Lion Anderson MD PATHOLOGY/CYTOLOGY Final R esult [facility] INTERNAL ZIP [id number] [address] from Last 3 Months or Most Recently Relevant to Health Maintenance Insurance [facility] Care Teams Patient Care Technician Relationship Specialty Start Date End Date Lion Anderson MD [address] [place] [address] PCP - General 03/23/06 Saad Ruffin MD [address] [place] [address] Gastroenterology Gastroenterology 07/13/13
[2025-02-19 07:08] VITALS: BP 129/85; PULSE 85; RESP 18; TEMP 36.2; O2SAT 100
--- NOTE | 2025-02-19 07:35 | ED.GENADULT ---
HPI - General Adult General Chief complaint: Dental/Oral/Mouth Injury/Pain Stated complaint: swollen jaw/pain Time Seen by Provider: 02/19/25 07:35 History of Present Illness HPI narrative: Pt here for R lower jaw pain, swelling, and redness. Known broken tooth there. Does have a dentist she sees. Symptoms began yesterday. 49-year-old woman presenting to the emergency department with concern of right lower jaw pain and swelling along with redness. She has had a broken tooth there for quite some time; Number 30 upon exam. Began to have increased pain and swelling of her right jaw area starting yesterday evening. No noted drainage. No new trauma. She is having pain also down into her neck. No noted difficulty swallowing. No fever. Does apparently have a relationship with a dentist. Tooth had not been causing her any trouble so did not pursue any treatment for it. Related Data Home Medications ?Medication ?Instructions ?Recorded ?Confirmed bupropion HCl 300 mg 24 hr tablet, 300 mg PO 10/10/21 11/22/24 extended release lubiprostone 8 mcg capsule 8 mcg PO 10/10/21 11/22/24 Held on 12/16/22. Instructions: PRN omeprazole 20 mg capsule,delayed 20 mg 10/10/21 11/22/24 release ondansetron 4 mg disintegrating 4 mg PRN 10/10/21 11/22/24 tablet Previous Rx's ?Medication ?Instructions ?Recorded estradiol 2 mg tablet 2 mg PO QDAY #90 tabs 11/22/24 clindamycin HCl 300 mg capsule 300 mg PO TID 7 days #21 caps 02/19/25 oxycodone-acetaminophen 5 mg-325 1 - 2 tab PO Q4-6H PRN pain #10 02/19/25 mg tablet (Percocet) tabs Allergies Allergy/AdvReac Type Severity Reaction Status Date / Time penicillin V Allergy Severe Anaphylaxis Verified 02/19/25 07:12 Sulfa (Sulfonamide Allergy Intermediate Vomiting Verified 02/19/25 07:12 Antibiotics) Cephalosporins Allergy Mild Hives Verified 02/19/25 07:12 acetaminophen (From Vicodin) Allergy Vomiting Verified 02/19/25 07:12 amoxicillin (From Augmentin) Allergy Vomiting Verified 02/19/25 07:12 cefaclor (From Ceclor) Allergy hives Verified 02/19/25 07:12 clavulanic acid (From Allergy Vomiting Verified 02/19/25 07:12 Augmentin) hydrocodone (From Vicodin) Allergy Vomiting Verified 02/19/25 07:12 Penicillins Allergy Anaphylaxis Verified 02/19/25 07:12 Review of Systems Status of ROS: Reports: 6 or more systems reviewed and unremarkable except as noted in History and below PFS PFS Medical History History of vaginal delivery History of blood transfusion ?Z92.89 - Personal history of other medical treatment (ICD-10) Adjustment disorder with depressed mood ?F43.21 - Adjustment disorder with depressed mood (ICD-10) Endometriosis ?N80.9 - Endometriosis, unspecified (ICD-10) History of cardiac murmur ?Z86.79 - Personal history of other diseases of the circulatory system (ICD-10) Surgical History S/P thyroid biopsy (02/11/18) ?Z98.890 - Other specified postprocedural states (ICD-10) History of total hysterectomy (09/06/13) ?Z90.710 - Acquired absence of both cervix and uterus (ICD-10) History of ovarian cystectomy (05/13/10) ?Z98.890 - Other specified postprocedural states (ICD-10) ?Z87.42 - Personal history of other diseases of the female genital tract (ICD-10) History of endometrial ablation (07/17/06) ?Z98.890 - Other specified postprocedural states (ICD-10) History of laparoscopic cholecystectomy (2003) ?Z90.49 - Acquired absence of other specified parts of digestive tract (ICD-10) History of appendectomy (1994) ?Z90.49 - Acquired absence of other specified parts of digestive tract (ICD-10) Family History Mother Lung cancer Breast cancer, Onset Age: 55 Stroke Coronary artery disease High blood pressure Depression Sister Diabetes Father Coronary artery disease High cholesterol Myocardial infarction, Onset Age: 70 Peripheral vascular disease High blood pressure Maternal Grandmother Breast cancer, Onset Age: 74 Coronary artery disease Myocardial infarction, Onset Age: 83 Maternal Grandfather Coronary artery disease Myocardial infarction, Onset Age: 52 Uncle Coronary artery disease Myocardial infarction, Onset Age: 50 Brother Liver cirrhosis Social History What is your current living situation?: I presently have a place to live Problems where you live: no known problems In the past 12 months, utilities in danger of being shut off: no In past 12 months, lack of transportation kept you from medical appts, meetings, work, or getting things needed for daily living: no In the past 12 mos, have been you worried that your food would run out before you had money to buy more?: never true In the past 12 mos, the food you bought just didn't last and you didn't have money to buy more?: never true Smoking Status: Never smoker Do you use any of these nicotine containing products: None How often do you have a drink containing alcohol: monthly or less How many standard drinks containing alcohol do you have on a typical day: 1 or 2 How often do you have six or more drinks on one occasion: Less than monthly AUDIT-C Alcohol total score: 2 Non-prescribed substance use: denies use How often does anyone, including family, friends and others, physically hurt you: never How often does anyone, including family, friends and others, insult or talk down to you: rarely How often does anyone, including family, friends and others, threaten you with harm: never How often does anyone, including family, friends and others, scream or curse at you: rarely Health Related Social Needs: Other personal risk factors, not elsewhere classified (Z91.89) Exam Narrative: Exam Narrative: Pleasant. Appears tired. Notably swollen right lower jaw cheek area. She is hesitant to allow for exam of this area with exquisite tenderness. I do not see induration or significant erythema or any calor. Sore to palpation without palpable lymph nodes down the right side of her neck as well. Oropharyngeal exam shows eroded in darkened tooth number 30. There is some swelling of the gingiva in the area and also swelling of the buccal surface as well. I do not appreciate swelling of parotid gland or any palpable stone. It looks as though part of this tooth might be scraping on the cheek itself as well. Seems to be creating soft edema of the mucosa Const: Vital Signs, click to edit/add: Vital Signs - 24 hr 02/19/25 07:08 Temperature 97.1 F L Pulse Rate [Right] 85 Respiratory Rate 18 Blood Pressure [Ri ght Upper Arm] 129/85 Pulse Oximetry 100 Oxygen Delivery Me thod Room Air Documenting provider has reviewed patient's vital signs: yes Course Vital Signs Vital signs: Initial Vital Signs Temperature 97.1 F L 02/19/25 07:08 Temperature Source Temporal Artery Scan 02/19/25 07:08 Pulse Rate 85 02/19/25 07:08 Pulse Rhythm Regular 02/19/25 07:08 Pulse Strength 3+ Normal 02/19/25 07:08 Respiratory Rate 18 02/19/25 07:08 Blood Pressure 129/85 02/19/25 07:08 Blood Pressure Mean 99 02/19/25 07:08 Blood Pressure Position Sitting 02/19/25 07:08 Pulse Oximetry 100 02/19/25 07:08 Oxygen Delivery Method Room Air 02/19/25 07:08 Vital Signs Temperature 97.1 F L 02/19/25 07:08 Pulse Rate 85 02/19/25 07:08 Respiratory Rate 18 02/19/25 07:08 Blood Pressure 129/85 02/19/25 07:08 Pulse Oximetry 100 02/19/25 07:08 Oxygen Delivery Method Room Air 02/19/25 07:08 Temperature 97.1 F L 02/19/25 07:08 Pulse Rate 85 02/19/25 07:08 Respiratory Rate 18 02/19/25 07:08 Blood Pressure 129/85 02/19/25 07:08 Pulse Oximetry 100 02/19/25 07:08 Oxygen Delivery Method Room Air 02/19/25 07:08 Medications Administered Medications: Discontinued Medications Generic Name Dose Route Start Last Admin Trade Name Tadeo PRN Reason Stop Dose Admin Bupivacaine HCl 4 ml 02/19/25 07:40 02/19/25 08:55 Bupivacaine 0.25% 30 Ml INJECTION 02/19/25 07:41 4 ml ONCE ONE Administration Medical Decision Making MDM Narrative Medical decision making narrative: This might be localized reaction or run away swelling related to trauma from this contact with the cheek or there may indeed be an abscess. Notes he discrete area to drain though at this point. Will place would of care ultrasound to check for fluid collection. I also offered treatment for pain as a dental block. She is interested in pursuing this. I did return to perform point of care ultrasound on the right jaw. I do see edema in the soft tissues with some small possible fluid collections along the mandible, 1 was maybe 0.5 cm in diameter and I do not think very amenable to drainage here. She is exquisitely tender. Placed 1.5 mL of 0.25% bupivacaine in a posterior alveolar block on the right which did result in posterior aspect anesthesia to about the mid mandible. Still with some discomfort around the tooth and so further injected 1.5 mL in a buccal/incisor block near tooth number 30 which ultimately resulted in marked improvement in discomfort. I think without more cellulitis and induration can treat with oral antibiotics at this time. See patient discharge plan for further discussion Stay well-hydrated. Take a copy of this dental list; options you might need before you can get in with your own dental clinic. Prescribing clindamycin and Percocet as discussed. Take ibuprofen up to 800 mg per dose or up to 1000 mg per dose of acetaminophen. Keep in mind that each tablet of Percocet contains 325 mg of acetaminophen. Be seen for marked increase in redness, tension, heat, pain, fever. Discharge Plan Discharge Clinical Impression: Pain, dental, Facial swelling Patient Disposition: Home, Self-Care Condition: Improved Additional Instructions: Stay well-hydrated. Take a copy of this dental list; options you might need before you can get in with your own dental clinic. Prescribing clindamycin and Percocet as discussed. Take ibuprofen up to 800 mg per dose or up to 1000 mg per dose of acetaminophen. Keep in mind that each tablet of Percocet contains 325 mg of acetaminophen. Be seen for marked increase in redness, tension, heat, pain, fever. Prescriptions: New clindamycin HCl 300 mg capsule 300 mg PO TID 7 Days Qty: 21 0RF oxycodone-acetaminophen [Percocet] 5-325 mg tablet 1 - 2 tab PO Q4-6H PRN (Reason: pain) Qty: 10 0RF No Action estradiol 2 mg tablet 2 mg PO QDAY Qty: 90 3RF omeprazole 20 mg capsule,delayed release(DR/EC) 20 mg Patient Comments: TAKE ONE CAPSULE BY MOUTH ONE TIME DAILY before a meal ondansetron 4 mg tablet,disintegrating 4 mg PRN Patient Comments: DISSOLVE ONE TABLET IN MOUTH EVERY EIGHT HOURS NEEDED FOR NAUSEA AND VOMITING bupropion HCl 300 mg tablet extended release 24 hr 300 mg PO Patient Comments: TAKE ONE TABLET BY MOUTH ONE TIME DAILY lubiprostone 8 mcg capsule 8 mcg PO Patient Comments: take 1 capsule by mouth 2 times daily for 2 weeks. if constipation not well managed, increase to 2 capsules 2 times daily. Follow Up/Referrals: Lion Anderson MD [Primary Care Provider, Family Practice] Stand Alone Forms: [facility] Info Instructions
[2025-02-19] MEDS: BUPIVACAINE 0.25% 30 ML 4 ML INJECTION (08:55)
== END 2025-02-19 09:13 | disposition home or self-care (01) ==
PROVIDERS: Emergency Provider Family Medicine; PCP Family Medicine
DX: S02.5XXA Fracture of tooth (traumatic), initial encounter for closed fracture (principal); X58.XXXA Exposure to other specified factors, initial encounter
CPT/HCPCS: 64400; 64450; 99283; 99284; 99285; J0665